=== PATIENT | female | born 1930 | race Caucasian/White ===

== ENCOUNTER → 2018-04-27 | Outpatient (REF) | END | disposition home or self-care (01) | DRG 690 | LOC: LABSPEC 15:24 | DX: N30.00 Acute cystitis without hematuria (principal) ==

== ENCOUNTER 2018-08-17 13:45 | Emergency (ER) | payer MEDICARE ==
[~2018-08-17] VITALS: Ht 142.2 cm; Wt 48.0 kg
[2018-08-17] MEDS ORDERED: METOPROL TAR25 MG PO (14:35)
[2018-08-17] MEDS ORDERED: LASIX 40 MG TAB40 MG PO (14:35)
[2018-08-17] MEDS ORDERED: ASPIRIN81 MG PO (14:36)
[2018-08-17] MEDS ORDERED: QUETIAPINE FUMA25 MG PO ×2 (14:37→14:41)
[2018-08-17] MEDS ORDERED: DONEPEZIL5 MG PO (14:38)
[2018-08-17 14:41] LABS: HEMATOCRIT 34.5 % (37.0-47.0); HEMOGLOBIN 10.9 g/dl (12.0-16.0); IMMATURE GRANULOCYTES 0.3 % (0.0-5.0); MEAN CELL VOLUME 102.4 fL CALC (80.0-100.0); MEAN CORPUSCULAR HGB 32.3 pG CALC (26.0-32.0); MEAN CORPUSCULAR HGB CONC 31.6 g/L CALC (32.0-36.0); NEUT# 6.95 thou/uL (2.00-7.15); RED BLOOD COUNT 3.37 mill/uL (4.20-5.60); RED CELL DISTRI WIDTH 13.5 % (11.5-15.5)
[2018-08-17] MEDS ORDERED: SERTRALINE25 MG PO (14:41)
[2018-08-17] MEDS ORDERED: MEMANTINE HCL10 MG PO (14:42)
[2018-08-17 15:03] LABS: ALBUMIN 3.6 g/dL (3.2-5.0); BILIRUBIN, TOTAL 0.4 mg/dL (0.0-1.4); CREATININE 1.1 mg/dL (0.5-1.0); POTASSIUM 3.7 mmol/l (3.5-5.1); TOTAL PROTEIN 6.4 g/dL (6.3-8.2)
[2018-08-17] MEDS ORDERED: CEPHALEXIN500 M1 PO (15:15)
[2018-08-17 15:37] VITALS: BP 128/60
== END 2018-08-17 15:55 | disposition home or self-care (01) ==
LOC: ED 13:45
PROVIDERS: Emergency Medicine
PROC: 0H9LXZZ Drainage of Left Lower Leg Skin, External Approach (ICD-10-PCS; principal; 2018-08-17)
DX: L02.416 Cutaneous abscess of left lower limb (principal); B95.62 Methicillin resistant Staphylococcus aureus infection as the cause of diseases classified elsewhere; M79.662 Pain in left lower leg

== ENCOUNTER 2018-08-18 16:05 | Emergency (ER) | payer MEDICARE ==
[~2018-08-18] VITALS: Ht 142.2 cm; Wt 50.0 kg
[~2018-08-18 16:05] MED LIST: ASPIRIN81 MG PO; CEPHALEXIN500 M1 PO; DONEPEZIL5 MG PO; LASIX 40 MG TAB40 MG PO; MEMANTINE HCL10 MG PO; METOPROL TAR25 MG PO; QUETIAPINE FUMA25 MG PO; SERTRALINE25 MG PO
[2018-08-18 16:59] LABS: HEMATOCRIT 37.6 % (37.0-47.0); HEMOGLOBIN 11.9 g/dl (12.0-16.0); IMMATURE GRANULOCYTES 0.3 % (0.0-5.0); MEAN CELL VOLUME 102.2 fL CALC (80.0-100.0); MEAN CORPUSCULAR HGB 32.3 pG CALC (26.0-32.0); MEAN CORPUSCULAR HGB CONC 31.6 g/L CALC (32.0-36.0); NEUT# 5.36 thou/uL (2.00-7.15); RED BLOOD COUNT 3.68 mill/uL (4.20-5.60); RED CELL DISTRI WIDTH 13.4 % (11.5-15.5)
[2018-08-18 17:04] LABS: ALBUMIN 3.9 g/dL (3.2-5.0); ALKALINE PHOSPHATASE 85 u/l (38-126); ANION GAP 12 (6-22 (CALC)); BILIRUBIN, TOTAL 0.4 mg/dL (0.0-1.4); BUN 28 mg/dL (8-23); BUN/CREATININE RATIO 32 (12-20 (CALC)); CARBON DIOXIDE 33 mmol/l (22-30); CHLORIDE 101 mmol/l (95-108); CREATININE 0.9 mg/dL (0.5-1.0); GFR 59 ML/MIN (>=60 (CALC)); GFR FOR AFR.AMER. > 60 ML/MIN (>=60 (CALC)); POTASSIUM 3.8 mmol/l (3.5-5.1); SGOT/AST 32 u/l (9-36); SODIUM 142 mmol/l (137-146)
[2018-08-18 17:20] VITALS: BP 112/64
== END 2018-08-18 17:20 | disposition home or self-care (01) ==
LOC: ED 16:05
PROVIDERS: Emergency Medicine
DX: Z48.01 Encounter for change or removal of surgical wound dressing (principal); I10 Essential (primary) hypertension; G30.9 Alzheimer's disease, unspecified; F02.80 Dementia in other diseases classified elsewhere, unspecified severity, without behavioral disturbance, psychotic disturbance, mood disturbance, and anxiety

== ENCOUNTER 2018-08-20 16:27 | Emergency (ER) | payer MEDICARE ==
[~2018-08-20] VITALS: Ht 142.2 cm; Wt 55.0 kg
[2018-08-20] MEDS ORDERED: BACTRIM DS1 TAB PO (16:48)
[2018-08-20 17:00] VITALS: BP 157/74
== END 2018-08-20 17:00 | disposition home or self-care (01) ==
LOC: ED 16:27
DX: L03.116 Cellulitis of left lower limb (principal); B95.62 Methicillin resistant Staphylococcus aureus infection as the cause of diseases classified elsewhere; I10 Essential (primary) hypertension; G30.9 Alzheimer's disease, unspecified; F02.80 Dementia in other diseases classified elsewhere, unspecified severity, without behavioral disturbance, psychotic disturbance, mood disturbance, and anxiety

== ENCOUNTER 2018-08-27 04:36 | Emergency (ER) | payer MEDICARE ==
[~2018-08-27] VITALS: Ht 142.2 cm; Wt 140.0 kg
[~2018-08-27 04:36] MED LIST changes: +BACTRIM DS1 TAB PO
[2018-08-27] MEDS ORDERED: METOPROLOL SUCC25 MG PO (05:03)
[2018-08-27 05:36] LABS: HEMATOCRIT 36.1 % (37.0-47.0); HEMOGLOBIN 11.5 g/dl (12.0-16.0); IMMATURE GRANULOCYTES 0.2 % (0.0-5.0); MEAN CELL VOLUME 101.1 fL CALC (80.0-100.0); MEAN CORPUSCULAR HGB 32.2 pG CALC (26.0-32.0); MEAN CORPUSCULAR HGB CONC 31.9 g/L CALC (32.0-36.0); NEUT# 3.56 thou/uL (2.00-7.15); RED BLOOD COUNT 3.57 mill/uL (4.20-5.60); RED CELL DISTRI WIDTH 13.2 % (11.5-15.5)
[2018-08-27 05:37] LABS: URINE BILIRUBIN - DIPSTICK NEGATIVE (NEGATIVE); URINE BLOOD DIPSTICK MODERATE (NEGATIVE); URINE COLOR YELLOW; URINE GLUCOSE - DIPSTICK NEGATIVE (NEGATIVE); URINE KETONE NEGATIVE (NEGATIVE); URINE LEUK ESTERASE NEGATIVE (NEGATIVE); URINE NITRITE - DIPSTICK NEGATIVE (Negative); URINE PH 6.5 (4.5-8.0); URINE PROTEIN - DIPSTICK NEGATIVE (NEG-TRACE); URINE SPECIFIC GRAVITY 1.025; URINE UROBILINOGEN - DIPSTICK 0.2 E.U./dL (0.2)
[2018-08-27 05:45] LABS: URINE WBC 0-2 WBC/hpf (0-5)
[2018-08-27 05:50] LABS: ALBUMIN 3.6 g/dL (3.2-5.0); BILIRUBIN, TOTAL 0.4 mg/dL (0.0-1.4); CREATININE 1.2 mg/dL (0.5-1.0); POTASSIUM 4.4 mmol/l (3.5-5.1); TOTAL PROTEIN 6.7 g/dL (6.3-8.2)
[2018-08-27 05:55] LABS: PROTHROMBIN TIME 10.5 SECONDS (9.0-12.5)
[2018-08-27 06:45] VITALS: BP 127/57
== END 2018-08-27 06:44 | disposition short-term general hospital (02) ==
LOC: ED 04:36
PROVIDERS: Emergency Medicine
PROC: 0T9B70Z Drainage of Bladder with Drainage Device, Via Natural or Artificial Opening (ICD-10-PCS; principal; 2018-08-27)
DX: S72.141A Displaced intertrochanteric fracture of right femur, initial encounter for closed fracture (principal); M25.531 Pain in right wrist; I10 Essential (primary) hypertension; G30.9 Alzheimer's disease, unspecified; F02.80 Dementia in other diseases classified elsewhere, unspecified severity, without behavioral disturbance, psychotic disturbance, mood disturbance, and anxiety; W18.30XA Fall on same level, unspecified, initial encounter

== ENCOUNTER 2019-01-12 19:34 | Observation (INO) | payer MEDICARE ==
[~2019-01-12] VITALS: Ht 142.2 cm; Wt 49.9 kg
[~2019-01-12 19:34] MED LIST changes: +METOPROLOL SUCC25 MG PO
--- NOTE | 2019-01-12 19:34 | NUR ---
BY EMS TO ROOM
--- NOTE | 2019-01-12 19:35 | NUR ---
PT. TO ROOM10 VIA EMS WITH C/O HAVING CP AFTER EATING CHILI FOR SUPPER. PT. CHEST PAIN IS COMPLETLY RESOLVED OF THIS TIME. SKIN WARM AND DRY TO TOUCH, COLOR PALE, RESP. EVEN AND UNLABORED. PT. IS DISORIENTED TO TIME AND PLACE, UNABLE TO REORIENT AT THIS TIME.
[2019-01-12] MEDS ORDERED: TOPROL XL25 M1 PO (19:56)
[2019-01-12] MEDS ORDERED: POTASSIUM CHLO10 MEQ PO (20:02)
--- NOTE | 2019-01-12 20:02 | NUR ---
PO ASA AND NITRO PASTE APPLIED PER MD ORDER.
[2019-01-12] MEDS ORDERED: DOK100 MG PO (20:04)
[2019-01-12] MEDS ORDERED: VITAMIN D31000 UNI1 PO (20:04)
[2019-01-12 20:20] LABS: HEMATOCRIT 38.9 % (37.0-47.0); HEMOGLOBIN 12.5 g/dl (12.0-16.0); IMMATURE GRANULOCYTES 0.2 % (0.0-5.0); MEAN CELL VOLUME 98.5 fL CALC (80.0-100.0); MEAN CORPUSCULAR HGB 31.6 pG CALC (26.0-32.0); MEAN CORPUSCULAR HGB CONC 32.1 g/L CALC (32.0-36.0); NEUT# 4.04 thou/uL (2.00-7.15); RED BLOOD COUNT 3.95 mill/uL (4.20-5.60); RED CELL DISTRI WIDTH 13.4 % (11.5-15.5)
[2019-01-12 20:24] LABS: ALBUMIN 3.5 g/dL (3.2-5.0); ALKALINE PHOSPHATASE 108 u/l (38-126); ANION GAP 11 (6-22 (CALC)); BILIRUBIN, TOTAL 0.3 mg/dL (0.0-1.4); BUN 39 mg/dL (8-23); BUN/CREATININE RATIO 43 (12-20 (CALC)); CHLORIDE 101 mmol/l (95-108); CREATININE 0.9 mg/dL (0.5-1.0); GFR 59 ML/MIN (>=60 (CALC)); GFR FOR AFR.AMER. > 60 ML/MIN (>=60 (CALC)); POTASSIUM 4.2 mmol/l (3.5-5.1); SGOT/AST 38 u/l (9-36); SODIUM 140 mmol/l (137-146); TOTAL PROTEIN 6.7 g/dL (6.3-8.2)
[2019-01-12 20:25] LABS: URINE BILIRUBIN - DIPSTICK NEGATIVE (NEGATIVE); URINE BLOOD DIPSTICK NEGATIVE (NEGATIVE); URINE COLOR YELLOW; URINE GLUCOSE - DIPSTICK NEGATIVE (NEGATIVE); URINE KETONE TRACE mg/dL (NEGATIVE); URINE LEUK ESTERASE NEGATIVE (NEGATIVE); URINE NITRITE - DIPSTICK NEGATIVE (Negative); URINE PROTEIN - DIPSTICK NEGATIVE (NEG-TRACE); URINE UROBILINOGEN - DIPSTICK 0.2 E.U./dL (0.2)
[2019-01-12 20:25] LABS: CARBON DIOXIDE 32 mmol/l (22-30)
--- NOTE | 2019-01-12 20:29 | NUR ---
PT. PULLING ON IV SITE TRYING TO GET OOB, REMOVING CARDIAC MONITORM MD AWARE, IM HALDOL GIVEN PER MD ORDER.
[2019-01-12 20:33] LABS: MYOGLOBIN 29 ng/mL (0 - 62)
--- NOTE | 2019-01-12 21:00 | NUR ---
PT. GETTING OOB UNASSISTED, TRYING TO HIT NURSING STAFF, MD AWARE.
--- NOTE | 2019-01-12 21:04 | NUR ---
IV ATIVAN GIVEN PER MD ORDER.
--- NOTE | 2019-01-12 21:30 | NUR ---
PT. RESTING QUIETLY EYES CLOSED, NO C/O AT THIS TIME. V/S STABLE.
--- NOTE | 2019-01-12 21:56 | NUR ---
Admission Note Report Given to: SHAYNA ALARCON Transported by: Wheelchair X Stretcher Transported with: X Nurse Transporter X Patent IV O2 X Inpatient Auditor
--- NOTE | 2019-01-12 22:10 | NUR ---
RESTING QUIETLY EYES CLOSED, NO ACUTE DISTRESS NOTED.
--- NOTE | 2019-01-12 22:11 | NUR ---
PT. TAKEN TO ICU VIA STRETCHER, NO C/O.
[2019-01-12 22:18] VITALS: BP 151/76
--- NOTE | 2019-01-12 22:18 | NUR ---
88 yr old white female admitted as medsurg tele overflow to icu6. remains sedated. transferred to bed x3 assists. bed weight obtained. mrsa swab obtained. history obtained per er record. hospital monitor shows sinus rhythm. #20 lfa saline lock. oriented to room. sitter @ bedside. fall & contact precautions initiated.
[2019-01-13 00:01] VITALS: BP 145/65
--- NOTE | 2019-01-13 00:01 | NUR ---
eyes closed. no distress. crdiac monitor shows sinus pili hr 58.
--- NOTE | 2019-01-13 04:00 | NUR ---
cont to sleep. no apparent distress. lunchroom monitor shows sinus pili hr 56. sitter @ bedside.
[2019-01-13 05:00] VITALS: BP 117/61
--- NOTE | 2019-01-13 06:15 | NUR ---
awakened. assisted to bsc. voided without diff then assistd back to bed. bed alarm reactivated.
--- NOTE | 2019-01-13 06:45 | NUR ---
RECIEVED REPORT FROM AGNES CORRAL. ASSUMED PT CARE.
[2019-01-13 07:30] VITALS: BP 123/70
--- NOTE | 2019-01-13 07:30 | NUR ---
PT RESTING IN BED, ALERT, PT UNABLE TO FOLLOW SIMPLE INSTRUCTIONS, STAFF MUST ANTICIPATE NEEDS. PT DENIES CP, SOB OF DISTRSS AT THIS TIME. AFEBRILE, NSB ON TELEMETRY. 20G TO LFA/SL FLUSHES WITHOUT DIFFICULTY. PT GIVEN WARM BLANKET FOR COMFORT. CALL LIGHT IN REACH. WILL MONITOR.
--- NOTE | 2019-01-13 11:30 | NUR ---
PT NOTED WITH BED ALARM GOING OFF, UPON ENTERING ROOM FOUND PT HAD PULLED DOWN BRIEF AND PEED THE BED, PT VERY HARD TO REDIRECT, SLAPPING AT STAFF WHEN TRYING TO ASSIST PT OUT OF BED, PT STATED" DONT WATER THE RIZO DOWN THERE." STATING THAT SHE CANT SIT ON THE BSC CAUSE IT WAS TOO COLD. WARMED PT SEAT WITH WARM BLAKET PRIOR TO ASSISTING PT TO BSC. PT UNABLE TO VOID AT THIS TIME. DIAMANTE CARE PROVIDED, COMPLETE LINEN CHANGE DONE. BED ALARM INTACT. CALL LIGHT IN REACH. WILL MONITOR.
[2019-01-13 11:58] LABS: HEMATOCRIT 41.8 % (37.0-47.0); HEMOGLOBIN 13.3 g/dl (12.0-16.0); IMMATURE GRANULOCYTES 0.3 % (0.0-5.0); MEAN CELL VOLUME 99.5 fL CALC (80.0-100.0); MEAN CORPUSCULAR HGB 31.7 pG CALC (26.0-32.0); MEAN CORPUSCULAR HGB CONC 31.8 g/L CALC (32.0-36.0); NEUT# 5.22 thou/uL (2.00-7.15); RED BLOOD COUNT 4.2 mill/uL (4.20-5.60); RED CELL DISTRI WIDTH 13.4 % (11.5-15.5)
[2019-01-13 12:00] VITALS: BP 154/83
[2019-01-13 12:16] LABS: ANION GAP 9 (6-22 (CALC)); BUN 26 mg/dL (8-23); BUN/CREATININE RATIO 40 (12-20 (CALC)); CARBON DIOXIDE 30 mmol/l (22-30); CHLORIDE 105 mmol/l (95-108); CREATININE 0.6 mg/dL (0.5-1.0); GFR > 60 ML/MIN (>=60 (CALC)); GFR FOR AFR.AMER. > 60 ML/MIN (>=60 (CALC)); MAGNESIUM 2.2 mg/dL (1.6-2.3); POTASSIUM 4.3 mmol/l (3.5-5.1); SODIUM 140 mmol/l (137-146)
--- NOTE | 2019-01-13 12:47 | NUR ---
PT ALARM GOING OFF, PT ATTEMPTING TO GET OUT OF BED. ASSISTED PT TO BSC. PT VOIDED. THEN BACK TO BED. WARM BLANKET PROVIDED. BED ALARM INTACT. WILL MONITOR.
--- NOTE | 2019-01-13 12:59 | NUR ---
PT REFUSED MEDICATIONS, TRIED REDIRECTING-UNSUCCESSFUL. PT EDUCATED ON RISKS, PT CONTINUES TO REFUSE, STATING," NO , IM TOO COLD AND IM NOT HUNGRY NOW. PT THEN CLOSED HER EYES AND MOUTH TIGHTLY SHUT. WILL MONITOR.
--- NOTE | 2019-01-13 13:15 | NUR ---
PT SON CALLED, CODE RECIEVED, UPDATE GIVEN. PT SON ASKED IF PT WAS RELEASED YET AND STATED THAT THE [facility] WAS READY TO PICK HER UP. THIS FULL STACK WEB DEVELOPER LET HIM KNOW THAT HE WOULD BE NOTIFIED ONCE DISCHARGE PENDING.
--- NOTE | 2019-01-13 14:02 | NUR ---
PT ASSISTED TO BSC, THEN BACK TO BED. MUCH DIRECTION AND REDIRECTION NEEDED. BED ALARM INTACT. WILL MONITOR.
--- NOTE | 2019-01-13 15:23 | NUR ---
DR. COOLEY & FESTUS RICHARD AT BEDSIDE FOR ASSESSMENT AND TO DISCUSS PLAN OF CARE. NEW ORDERS RECIEVED. SON AWARE OF NEW ORDERS.
--- NOTE | 2019-01-13 15:45 | NUR ---
PT ASSISTED TO BSC, THEN BACK TO BED. BED ALARM INTACT.
--- NOTE | 2019-01-13 16:14 | NUR ---
CALLED [facility] REPORT GIVEN TO CHRISTINA THE ROD BUSTER HELPER. CAN SLIDER PENDING.
--- NOTE | 2019-01-13 17:12 | NUR ---
CALLED [facility] FOR AN ETA, CHRISTINA STATED 15 MIN FOR LEGAL RESEARCH ANALYST.
--- NOTE | 2019-01-13 17:37 | NUR ---
PT ATTEMPTING TO GET OUT OF BED, PT NOT REDIRECTED EASILY. PT STATED, "I JUST GOT A SHOWER AND NOT GONNA GO WATER THE DOGS AND SHE BE READY." PT ASSITED BACK TO BED, BED ALARM INTACT. STAFF AT BEDSIDE. CHANGE HOUSE ATTENDANT FROM [place] PENDING.
--- NOTE | 2019-01-13 17:49 | NUR ---
JAJA, CARE TEAM ARRIVED FOR RENAL CASE MANAGER OF PT TO TRANSPORT PT BACK TO [place].
== END 2019-01-13 18:01 ==
LOC: ED 19:34 → ED-I 21:17 → ED 21:31 → ICU 21:32
PROVIDERS: Emergency Medicine; Nurse Practitioner Family; ADMIT Internal Medicine; ATTEND Internal Medicine
DX: R07.9 Chest pain, unspecified (principal); G30.9 Alzheimer's disease, unspecified; F02.81 Dementia in other diseases classified elsewhere, unspecified severity, with behavioral disturbance; I12.9 Hypertensive chronic kidney disease with stage 1 through stage 4 chronic kidney disease, or unspecified chronic kidney disease; N18.9 Chronic kidney disease, unspecified
CPT/HCPCS: J2060

== ENCOUNTER 2019-08-21 12:24 | Inpatient (IN) | payer MEDICARE ==
[~2019-08-21] VITALS: Ht 142.2 cm; Wt 48.0 kg
[~2019-08-21 12:24] MED LIST changes: +DOK100 MG PO; +POTASSIUM CHLO10 MEQ PO; +TOPROL XL25 M1 PO; +VITAMIN D31000 UNI1 PO
--- NOTE | 2019-08-21 12:25 | NUR ---
TO ROOM VIA EMS STRETCHER
[2019-08-21 13:06] LABS: HEMATOCRIT 38.1 % (37.0-47.0); HEMOGLOBIN 12.2 g/dl (12.0-16.0); IMMATURE GRANULOCYTES 0.1 % (0.0-5.0); MEAN CELL VOLUME 98.2 fL CALC (80.0-100.0); MEAN CORPUSCULAR HGB 31.4 pG CALC (26.0-32.0); NEUT# 5.28 thou/uL (2.00-7.15); RED BLOOD COUNT 3.88 mill/uL (4.20-5.60); RED CELL DISTRI WIDTH 12.8 % (11.5-15.5)
[2019-08-21 13:45] LABS: ALBUMIN 3.7 g/dL (3.2-5.0); ALKALINE PHOSPHATASE 151 u/l (38-126); ANION GAP 9 (6-22 (CALC)); BUN 27 mg/dL (8-23); BUN/CREATININE RATIO 41 (12-20 (CALC)); CARBON DIOXIDE 31 mmol/l (22-30); CHLORIDE 101 mmol/l (95-108); CREATININE 0.7 mg/dL (0.5-1.0); GFR > 60 ML/MIN (>=60 (CALC)); GFR FOR AFR.AMER. > 60 ML/MIN (>=60 (CALC)); LIPASE 60 u/l (23-300); POTASSIUM 3.8 mmol/l (3.5-5.1); SGOT/AST 32 u/l (9-36); SODIUM 137 mmol/l (137-146); TOTAL PROTEIN 7.3 g/dL (6.3-8.2)
[2019-08-21 13:47] LABS: BILIRUBIN, TOTAL 0.7 mg/dL (0.0-1.4)
--- NOTE | 2019-08-21 14:29 | NUR ---
AT BEDSIDE WITH [facility] CHARGE NURSE FOR STRAIGHT CATH. PT KICKING LEGS AND SLAPPING AT STAFF. URINE SPECIMEN OBTAINED, WHEN I WAS ATTEMPTING TO COVER PT BACK UP WITH WARM BALNKET , SKIN TEAR NOTED ON LLE. 9CM X 4CM SKIN TEAR NOTED. DR ZUNIGA AT BEDSIDE TO EVALUATE, STERI STRIPS AND DRESSING APPLIED. PT TOLERATED WELL.
--- NOTE | 2019-08-21 15:01 | NUR ---
DR. ZUNIGA AND I SPOKE TO THE PATIENT' SON (WHIT) ON THE PHONE AT LENGTH ABOUT PATIENT'S AND FAMILY'S WISHES. SONMarcello IS POS AND STATES HIS MOTHER HAS A DNR ON FILE AT [facility]. HE IS ASKING FOR A HOSPICE CONSULT FOR COMFORT MEASURES. MD AWARE AND WILL REPORT TO ADMITTING PHYSICIAN. PT NURSE ALSO MADE AWARE OF WISHES.
[2019-08-21 15:08] LABS: URINE BILIRUBIN - DIPSTICK NEGATIVE (NEGATIVE); URINE BLOOD DIPSTICK NEGATIVE (NEGATIVE); URINE COLOR YELLOW; URINE GLUCOSE - DIPSTICK NEGATIVE (NEGATIVE); URINE KETONE NEGATIVE (NEGATIVE); URINE LEUK ESTERASE NEGATIVE (NEGATIVE); URINE NITRITE - DIPSTICK NEGATIVE (Negative); URINE PH 6.5 (4.5-8.0); URINE PROTEIN - DIPSTICK NEGATIVE (NEG-TRACE); URINE UROBILINOGEN - DIPSTICK 0.2 E.U./dL (0.2)
--- NOTE | 2019-08-21 15:30 | NUR ---
PT RESTING WITH EYES CLOSED, AWAKENS TO TACTILE STIMULI. VITAL SIGNS STABLE.
--- NOTE | 2019-08-21 16:30 | NUR ---
NO CHANGE IN PT STATUS.
--- NOTE | 2019-08-21 17:00 | NUR ---
ATTEMPTED TO CALL REPORT, INSTRUCTED THAT NURSE WILL HAVE TO CALL BACK.
[2019-08-21 18:18] VITALS: BP 158/81
--- NOTE | 2019-08-21 18:45 | NUR ---
PT TO MED SURG VIA STRETCHER IN STABLE CONDITION.
--- NOTE | 2019-08-21 19:00 | NUR ---
PT SEEN AT REST IN THE BED, EYES CLOSED, RESPONDS TO TOUCH. PT WITH DEMENTIA, UNABLE TO PROVIDE MEANINGFUL INFORMATION. DRESSING NOTED TO LEFT CALF. LUNGS CLEAR, RA. NO OBVIOUS DISTRESS IN AN ELDERLY LADY.
--- NOTE | 2019-08-21 20:30 | NUR ---
PT RESTING IN BED, APPEARS COMFORTABLE IN NO DISTRESS, BRIEF MOMENTS OF APNEA APPRECIATED. PHYSICAL ASSESMENT COMPLETE. PT TOLERATED PO MED WHOLE WITH PUDDING. CALL MENJIVAR WITHIN REACH, ITEMS WITHIN REACH. BED LOCKED IN LOW POSITION W/ BEDRAILS UPX2.
--- NOTE | 2019-08-22 01:15 | NUR ---
PT CON'T TO SLEEP, APPEARS COMFORTABLE AND IN NO DISTRESS. CALL MENJIVAR REMAINS WITHIN REACH. BED REMAINS LOCKED IN LOW POSITION W/ BEDRAILS UPX2.
[2019-08-22 05:08] VITALS: BP 138/80
--- NOTE | 2019-08-22 05:10 | NUR ---
PT CON'T TO REST COMFORTABLY, NO APPARENT DISTRESS, RESPIRATIONS REGULAR AND UNLABORED. CALL MENJIVAR REMAINS WITHIN REACH, BED REMAINS LOCKED IN LOW POSITION W/ BEDRAILS UP X2.
[2019-08-22 05:33] LABS: HEMATOCRIT 35.2 % (37.0-47.0); HEMOGLOBIN 11.2 g/dl (12.0-16.0); IMMATURE GRANULOCYTES 0.3 % (0.0-5.0); MEAN CELL VOLUME 98.1 fL CALC (80.0-100.0); MEAN CORPUSCULAR HGB 31.2 pG CALC (26.0-32.0); MEAN CORPUSCULAR HGB CONC 31.8 g/dL CAL (32.0-36.0); NEUT# 4.64 thou/uL (2.00-7.15); RED BLOOD COUNT 3.59 mill/uL (4.20-5.60)
[2019-08-22 05:42] LABS: ALKALINE PHOSPHATASE 124 u/l (38-126); ANION GAP 8 (6-22 (CALC)); BILIRUBIN, TOTAL 0.7 mg/dL (0.0-1.4); BUN 24 mg/dL (8-23); BUN/CREATININE RATIO 35 (12-20 (CALC)); CARBON DIOXIDE 30 mmol/l (22-30); CHLORIDE 103 mmol/l (95-108); CREATININE 0.7 mg/dL (0.5-1.0); GFR > 60 ML/MIN (>=60 (CALC)); GFR FOR AFR.AMER. > 60 ML/MIN (>=60 (CALC)); POTASSIUM 3.6 mmol/l (3.5-5.1); SGOT/AST 23 u/l (9-36); SODIUM 137 mmol/l (137-146); TOTAL PROTEIN 6.1 g/dL (6.3-8.2)
[2019-08-22 08:41] VITALS: BP 146/81
--- NOTE | 2019-08-22 14:53 | NUR ---
PATIENT ALERT WITH CONFUSION; GARBLED SPEECH AT TIMES. SLIGHT AGITATION, TRYING TO REMOVE GOWN. REORIENTED TO PLACE. REASSURED SAFETY. BRIEF IS DRY. TAKES SMALL SIPS OF WATER. NO C/O PAIN.
--- NOTE | 2019-08-22 14:56 | NUR ---
PATIENT SONS ARRIVED DURING SHIFT ASKING ABOUT PLAN OF CARE. BOTH EXPRESSED NOT WANTING TO TAKE AGGRESSIVE MEASURES WITH CARE. CONCERNED ABOUT PLACEMENT, PT CAME FROM PRISON, PT MAY REQUINRE SNF. ALSO STATED INTERESTS IN HOSPICE. I RELAYED THEIR CONCERNS TO TOLL SERVICE OBSERVER. SONS AWAITING POC UPDATE FROM
[2019-08-22 15:57] VITALS: BP 141/75
--- NOTE | 2019-08-22 18:44 | NUR ---
SPOKE TO DR STORY CONCERNING SONS REQUESTING POC UPDATE. STATED HE WILL ORDER A REPEAT CT HEAD IN THE AM TO COMPARE TO CURRENT SCAN. HE STATED HE WILL PLACE THE ORDER HIMSELF IN THE AM. I RELAYED THE UPDATE TO BOTH SONS. THEY EXPRESSED UNDERSTANDING. PT ALERT, AROUSBALE IN BED.
--- NOTE | 2019-08-22 19:15 | NUR ---
STATIONARY STEAM ENGINEER REPORTS PT REFUSED VS CHECK, KEPTS SREAMING "YOUR'E PINCHING ME, STOP"
--- NOTE | 2019-08-22 20:30 | NUR ---
PT AWAKE, EYES OPEN, RESPONDS INNAPROPRIATLEY TO QUESTIONS. ALERT TO SELF ONLY. SEROQUEL GIVEN WHOLE IN PUDDING. PT PULLS SEROQUEL FROM MOUTH AND THROWS IT. PILL COLLECTED AND DESTROYRED/DISPOSED. NEW SEROQUEL CRUSHED AND MIXED IN PUDDING. PT TOLERATED. PT TOLERATED SIPS OF WATER WITH STRAW. PT IS PLEASANT AND COOPERATIVE. STATES "IM COLD, HELP ME" PT COVERED WITH HOSPITAL SHEET AND BLANKET, ADDITIONAL WARM BLANKET FROM WARMER AND BLANKET FROM HOME. PT APPEARS COMFORTABLE AND IN NO DISTRESS AT THIS TIME.
--- NOTE | 2019-08-22 21:17 | NUR ---
Patient refused vitals at this time 1845. Nurse was notified.
--- NOTE | 2019-08-22 21:55 | NUR ---
Satish TUTTLE RN NOTICES PT IS ATTEMPTING TO PULL OUT IV. Satish TUTTLE RN ATTEMPTS TO REDIRECT PT. PT PROCEEDS TO QUICKLY PULL IV OUT AND STARTS SCREAMING. NOTED PT HAS CAUSED A SKIN TEAR AT IV SITE LOCATION. PT SCREAMS AND ATTEMPTS TO HIT STAFF WHEN ATTEMPTS MADE TO ASSESS AND CLEAN/DRESS SKIN TEAR. PT TIGHTLY TIE MAN ONTO THIS NURSES HANDS, AT THIS TIME OPPORTUNITY TAKEN BY HEADING UP MACHINE OPERATOR TO GENTLY AND QUICKLY PAT SKIN TEAR WITH WET WASH CLOTH. ONCE BLOOD IS CLEARED NO ACTIVE BLEEDING IS NOTED. ATTEMPTS TO FURTHER MANAGE SKIN TEAR HELD OVER CONCERNS OF SAFETY FOR PT AND STAFF PT IS SWINGING AT STAFF AND IS PRON TO SKIN TEARS, PT IS ALSO YELLING AND ATTEMPTING TO SPIT AT STAFF. PT SAFE IN BED WITH COVERS ON FOR COMFORT. BED LOCKED IN LOW POSITION W/ BEDRAILS UP X2 AND BED ALARM ON.
--- NOTE | 2019-08-22 22:10 | NUR ---
DR. COLEMAN ADVISED OF PT'S AGITATION, SKIN TEAR CAUSED WHEN PT PULLED OUT HER IV, INABILITY TO RESTART NEW IV, DRESS SKIN TEAR OR PROVIDE FURTHER PHYSICAL CARE DUE TO PTS AGITATION AND AGRESSION TOWARDS STAFF. DR. COLEMAN SUGGESTS 1:[address] COLEMAN PRESENCE OF STAFF APPEARS TO MAKE PT'S AGITATION WORSE. NO FURTHER ORDERS RECEIVED. WILL CON'T TO MONITOR PT AND PROVIDE CARE HER BEHAVIOR ALLOWS.
--- NOTE | 2019-08-23 00:05 | NUR ---
PT APPEARS TO BE SLEEPING COMFORTABLY, APPEARS COMFORTABLE AND IN NO APPARENT DISTRESS, RESPIRATIONS REGULAR AND UNLABORED, WILL CON'T TO MONITOR.
[2019-08-23 04:35] VITALS: BP 148/79
--- NOTE | 2019-08-23 04:43 | NUR ---
Patient refused to be cleaned up and changed. she was agitated and trying to hit and scratch.
--- NOTE | 2019-08-23 04:45 | NUR ---
patient refused to be cleaned up and changed at this time 0440. she was agitated. she was trying to hit and scratch.
--- NOTE | 2019-08-23 05:05 | NUR ---
PT ALLOWS AIRCRAFT STRUCTURAL FITTER TO TAKE VS, DOES NOT ALLOW INCONTINENCE CARE. AIRCRAFT STRUCTURAL FITTER ABLE TO SAFELY REMOVE WET BRIEF. OPTIFOAM DRESSING AND DRY GUAZE WRAP APPLIED AND SECURED W/ TUBULAR NETTING. PT IS CALMER BUT KEEPS YELLING OUT "HELP ME HONEY" DOES NOT ANSWER TO WHAT SHE WANTS HELP WITH WHEN ASKED. RESTING IN BED. BED ALARM REMAINS ON. BED REMAINS LOCKED AND IN LOW POSITION W/ BEDRAILS UP X2.
[2019-08-23 06:55] VITALS: BP 151/67
--- NOTE | 2019-08-23 10:09 | NUR ---
PT AGITATED THIS AM. TRYING TO TAKE OFF GOWN AND SWING LEGS OVER THE SIDE OF THE BED. REPOSITIONED WITH PM NURSE. SEMI-FOWLERS. CALL LIGHT IN REACH. BED ALARM ON. PERFORMED ORAL CARE, GAVE WATER. CHANGED BRIEF, URINE ONLY. ALERT WITH CONFUSION. NO S/S OF PAIN. POSITION BOWL SOUNDS. NO BM OF YET.
--- NOTE | 2019-08-23 10:11 | NUR ---
INFORMED ARCHITECTURAL MODELER JORDAN PATIENT HAS NOT HAD A BM DURING ADMISSION. HOWEVER PO INTAKE IN MINIMAL, SHE ATE MORE BREAKFAST TODAY COMPARED TO 08/21. POSITION BOWEL SOUNDS. ABD IS SOFT A PAPABLE. ARCHITECTURAL MODELER WILL ORDER STOOL SOFTENER.
--- NOTE | 2019-08-23 11:12 | NUR ---
PATIENT JIN NELSON AND EMILAINA NELSON CALLED TO INITIATE HOSPICE CONSULT. CRAIG ORTEGA INFORMED.
--- NOTE | 2019-08-23 12:06 | NUR ---
CALLED HOSPICE ADMISSIONS OFFICE AT . SPOKE TO DANNA AND WAS GIVEN FAX NUMBER [phone].
[2019-08-23 15:09] VITALS: BP 126/74
--- NOTE | 2019-08-23 16:20 | NUR ---
PATIENT DISCHARGE TO HOSPICE. PT UNABLE TO SIGN, WILL HAVE WITNESS. TRANSPORT TO SQL DATABASE PROGRAMMER PATIENT WITH O2 2L N/C. CASE MANAGEMENT AWARE. HOSPICE NURSE AWARE. SONS INFORMED BY HOSPICE NURSE OF PLAN OF CARE. PATIENT ALERT AND CONFUSED. AROUSBLE. NOT AGITATED AT THIS TIME. NO IV PRESENT. PT WITH CLEAN BRIEF.
== END 2019-08-23 16:37 | disposition hospice, inpatient (51) | DRG 66 ==
LOC: ED 12:24 → ED-I 14:55 → ED 15:07 → MS2 15:08 → ED-I 15:08 → MS2 15:32
PROVIDERS: Family Medicine; Nurse Practitioner Family; ADMIT Internal Medicine; ATTEND Internal Medicine
DX: I61.1 Nontraumatic intracerebral hemorrhage in hemisphere, cortical (principal); G30.9 Alzheimer's disease, unspecified; F02.80 Dementia in other diseases classified elsewhere, unspecified severity, without behavioral disturbance, psychotic disturbance, mood disturbance, and anxiety; I10 Essential (primary) hypertension; Z66 Do not resuscitate; Z51.5 Encounter for palliative care; Z20.828 Contact with and (suspected) exposure to other viral communicable diseases
CPT/HCPCS: G0378; J1953